=== PATIENT | female | born 1960 | race Caucasian/White ===

== ENCOUNTER → 2018-12-20 | Outpatient (CLI) | payer BC ==
--- NOTE | 2018-12-22 09:07 | MM ---
Reason for exam: screening (asymptomatic). Physical Findings: A clinical breast exam by your physician is recommended on an annual basis and results should be correlated with mammographic findings. MG 3D Screening Mammo W/Cad Bilateral CC and MLO view(s) were taken. No prior studies available for comparison. The breast tissue is heterogeneously dense. This may lower the sensitivity of mammography. There is a 3mm group of calcifications in the right upper outer quadrant at middle depth near the 9:30 position. No suspicious abnormality in the left breast. ASSESSMENT: Incomplete: need additional imaging evaluation, BI-RAD 0 RECOMMENDATION: Special view mammogram of the right breast. [facility] will attempt to contact patient to return for supplemental views.
== END | disposition home or self-care (01) ==
LOC: RADMAMWWP 13:15
PROVIDERS: ATTEND Family Medicine
DX: Z12.31 Encounter for screening mammogram for malignant neoplasm of breast (principal)
CPT/HCPCS: 77063; 77067

== ENCOUNTER → 2019-01-12 | Outpatient (CLI) | payer BC ==
--- NOTE | 2019-01-15 08:09 | MM ---
Reason for exam: additional evaluation requested from abnormal screening. Last mammogram was performed 1 month ago. Physical Findings: Nurse did not find any significant physical abnormalities on exam. MG 3D Work Up W/Cad RT CC with magnification, LM with magnification, and LM view(s) were taken of the right breast. Prior study comparison: December 20, 2018, bilateral MG 3d screening mammo w/cad. The breast tissue is heterogeneously dense. This may lower the sensitivity of mammography. Finding: There are calcifications in the outer quadrant, central position of the right breast. These results were verbally communicated with the patient and result sheet given to the patient on 01/12/19. ASSESSMENT: Suspicious, BI-RAD 4 RECOMMENDATION: Stereotactic core biopsy of the right breast. Called with mammographic findings and has scheduled an appointment for the patient for 02/08/19 at 4:[address] Yip. Biopsy scheduled for 02/09/19 at 8:00. PRELIMINARY REPORT CALLED AND FAXED TO DR. YIP ON 01/15/19.
== END | disposition home or self-care (01) ==
LOC: RADMAMWWP 14:31
PROVIDERS: ATTEND Family Medicine
DX: R92.8 Other abnormal and inconclusive findings on diagnostic imaging of breast (principal)
CPT/HCPCS: 77061; 77065

== ENCOUNTER → 2019-02-08 | Outpatient (CLI) | payer BC ==
[2019-02-08 16:50] VITALS: BP 126/78; PULSE 86; RESP 20; TEMP 98; BMI 41.1
--- NOTE | 2019-02-08 16:52 | P.GSHP ---
History of Present Illness H&P Date: 02/08/19 Chief Complaint: abnormal mammogram of the right breast Aminah is a 58-year-old white female who on a routine mammogram was noted to have an area of microcalcification in her right breast. A bilateral mammogram was in December 20 which revealed a 3 mm group of calcifications the right upper outer quadrant and this was followed on 3818 by diagnostic mammogram of the right breast. The area was felt to be suspicious and stereotactic core biopsy of the right breast was recommended. She states she did not feel anything of concern in her breasts. No nipple discharge or skin changes. She does not feel any lumps or masses in her breast. She does not have any pain in her breasts. Her last mammogram was approximately 10 years ago. Family history: 1. Brother: Non-Hodgkin's lymphoma 2. mother: pancreatic cancer 3. father: Esophageal cancer 4. sister: Thyroid cancer 5. Paternal grandmother: Lung cancer Hormonal history: Menarche:17 Pregnancies: 3, 3 children, first born at 21, breast fed: None Menopause: Has not had a period for 3 months BCP: none hormones: none Past surgical history: 1. 3 C-sections 2. Cervical neck fusion 3. hernia surgery times three 4. gallbladder 5. lithotripsy Current medical history: 1. Kidney stones 2. Cervical neck disease 3. Hypothyroid Social History: smoke: none alcohol: monthly drugs: none - Constitutional Comment: hot flashes Constitutional: Reports sweats - EENT Eyes: denies blurred vision, denies pain Ears: deny: decreased hearing, tinnitus Ears, nose, mouth and throat: Denies headache, Denies sore throat - Breasts Breasts: bilateral: as per HPI - Cardiovascular Cardiovascular: Reports high blood pressure - Respiratory Respiratory: Denies cough, Denies 7 - Gastrointestinal Gastrointestinal: Denies abdominal pain, Denies diarrhea, Denies nausea, Denies vomiting - Genitourinary (Female) Genitourinary: Reports kidney stones - Menstruation Comment: perimenopausal - Musculoskeletal Musculoskeletal: Reports neck pain - Integumentary Integumentary: Denies pruritus, Denies rash - Neurological Neurological: Reports weakness - Psychiatric Psychiatric: Denies anxiety, Denies depression - Endocrine Comment: hypothyroid Endocrine: Reports weight change, Denies fatigue - Hematologic/Lymphatic Comment: none - Allergic/Immunologic Allergic/Immunologic: Reports as per HPI Medications and Allergies Home Medications Medication Instructions Recorded Confirmed Type Levothyroxine Sodium [Synthroid] 200 mcg PO DAILY 02/05/19 02/05/19 History Allergies Allergy/AdvReac Type Severity Reaction Status Date / Time No Known Allergies Allergy Verified 02/05/19 12:50 Surgical - Exam BMI 41.1 - General well developed, well nourished, no distress - Eyes normal ocular movement - ENT no hearing loss, no congestion - Neck no masses, trachea midline - Respiratory normal respiratory effort, clear to auscultation - Cardiovascular Rhythm: regular Heart Sounds: normal: S1, S2 - Abdomen Abdomen: soft, non tender, no guarding, no rigid, no rebound - Integumentary normal turgor - Neurologic no disoriented, no combative - Musculoskeletal normal gait, normal posture - Psychiatric oriented to time, oriented to person, oriented to place, speech is normal, memory intact Breast examination: Right breast: Multi-positional exam no dominant masses or nodules of concern, fibrocystic changes Right axilla: No adenopathy of concern Left breast: Multi-positional exam no dominant masses or nodules of concern, fibrocystic changes Left axilla: No adenopathy of concern Results Mammogram results reviewed Assessment and Plan Assessment: Impression: 1. Mammographic abnormality right breast 2. Fibrocystic breast changes 3. Family history of cancer 4. Cervical disc disease 5. History of kidney stones Plan: 1. Stereotactic core biopsy right breast 2. Medical management of medical conditions Risks and benefits of stereotactic procedure discussed with the patient. She wishes to proceed in this is scheduled for tomorrow. Cc: Sonia Perry
== END ==
LOC: WWCWWP 15:38
PROVIDERS: ATTEND Surgery
DX: Z53.9 Procedure and treatment not carried out, unspecified reason (principal)

== ENCOUNTER → 2019-02-09 | Day surgery (SDC) | payer BC ==
[2019-02-09 07:20] VITALS: RESP 16; BMI 42.0
--- NOTE | 2019-02-09 09:24 | P.OP ---
Date of Procedure: 02/09/19 Preoperative Diagnosis: Mammographic abnormality/microcalcifications right breast outer quadrant Postoperative Diagnosis: same Procedure(s) Performed: Right breast stereotactic core biopsy Anesthesia: local Surgeon: Milly Yip Estimated Blood Loss (ml): 2 Pathology: other Condition: stable Disposition: same day Indications for Procedure: Microcalcifications of concern right breast outer quadrant Operative Findings: Microcalcifications Description of Procedure: The patient is a 58-year-old white female who presented with a mammographic abnormality in her right breast. This was in the outer quadrant. The patient was recommended to undergo a stereotactic core biopsy. Risks and benefits of the procedure were discussed with the patient and she wished to have the procedure performed. Patient was taken to the stereotactic core room. She was positioned on the lo- rad table. A sweatband flanger film was attained in the cc from both position revealing the area of concern. Stereo pair was obtained. The lesion of concern was targeted. The skin was prepped using Betadine. 1% lidocaine was used to anesthetize the area of concern. A 9-gauge vacuum-assisted rotating core biopsy needle was driven to the correct coordinates. Pre-and post-fire radiographs were obtained revealing the correct location of the needle. 5 specimens were obtained from the 12 o'clock position. Radiograph of the specimen revealed the area of concern had been sampled as per calcifications in the specimen. A secure radha clip was left in place. Patient tolerated the procedure in stable condition. Specimen was sent for pathology. The patient will follow with Dr. Clemente in 1 week.
[2019-02-09 09:25] VITALS: BP 147/84; PULSE 78; TEMP 97.6
--- NOTE | 2019-02-12 09:00 | MM ---
EXAMINATION TYPE: MG stereo VAD BX RT DATE OF EXAM: 02/09/2019 COMPARISON: Mammogram 01/12/2018 CLINICAL HISTORY: Abnormal mammogram TECHNIQUE: Stereotactic guided core biopsy of right breast. FINDINGS I performed the localization, then surgeon, Dr. Clemente performed the remainder of the procedure. A vacuum assisted biopsy gun was used to obtain multiple core samples. The patient tolerated the procedure well without any immediate complication. The patient was kept in the radiology department for short stay after the procedure and then discharged home in stable condition. Targeted calcifications are identified in specimen mammogram. Post biopsy mammogram shows the clip to appear in satisfactory position relative to the targeted area of concern on the preprocedure images. IMPRESSION: SUCCESSFUL, UNCOMPLICATED STEREOTACTIC GUIDED CORE BIOPSY OF AREA OF CONCERN, ABNORMAL CALCIFICATIONS IN THE right BREAST, FULL PATHOLOGY RESULTS TO FOLLOW. Pathology Results: Benign RIGHT BREAST, STEREOTACTIC CORE BIOPSY: Flat epithelial atypia (FEA/ADH) with associated calcifications. Background fibrocystic changes including cysts, fibrosis, columnar cell hyperplasia, and adenosis. Recommendation Follow up mammogram of the right breast in 6 months. JEY
== END ==
LOC: RADMAMWWP 07:01
PROVIDERS: ATTEND Surgery
DX: N60.11 Diffuse cystic mastopathy of right breast (principal); N60.01 Solitary cyst of right breast; R92.8 Other abnormal and inconclusive findings on diagnostic imaging of breast
CPT/HCPCS: 88305; 19081; A4648; J2001

== ENCOUNTER → 2019-02-23 | Outpatient (CLI) | payer BC ==
[2019-02-23 13:36] VITALS: BP 126/86; PULSE 87; RESP 16; TEMP 97.7; BMI 42.0
--- NOTE | 2019-02-23 13:48 | P.PN ---
Progress Note - Text Progress Note Date: 02/23/19 Aminah is a 58-year-old white female who is status post right breast area tactic core biopsy on 451. Pathology revealed flat epithelial atypia. The patient has no complaints related to the biopsy. Physical exam: Area of the incision is clean and dry with no evidence of any infection Impression: 1. Flat epithelial atypia noted on Cerner tactic core biopsy of the right breast Plan: 1. Needle local excisional biopsy of area of atypia in the right breast Risk and benefits of the procedure were discussed with the patient. She understands and wishes to proceed. This will be scheduled in the near future. Cc: Sonia Perry
== END | disposition home or self-care (01) ==
LOC: WWCWWP 13:16
PROVIDERS: ATTEND Surgery
DX: Z53.9 Procedure and treatment not carried out, unspecified reason (principal)

== ENCOUNTER → 2019-03-29 | Outpatient (CLI) | payer BC ==
[2019-03-29 15:47] VITALS: BP 125/68; PULSE 69; RESP 18; TEMP 98; BMI 40.7
--- NOTE | 2019-03-29 16:30 | P.GSHP ---
History of Present Illness H&P Date: 03/29/19 Chief Complaint: sterotactic core biopsy with atypia Aminah is a 58-year-old white female who is status post right breast stereotactic core biopsy and 4519. Pathology revealed flat epithelial atypia. Mammogram was being done as routine screening. She had not had a mammogram for 10 years. Family history: 1. : Non-Hodgkin's lymphoma diet 2. Mother: Pancreatic cancer 2. Father: Esophageal cancer 4. Sr.: Thyroid cancer 5. Paternal grandmother: Lung cancer Hormonal history: : Menarche: 17 Pregnancies: 3, 3 children, first point and 21, press-fit: No Menopause: Has not had a period for 5 months This control pills: Negative Hormones: Negative Past surgical history: 1. 3 C-sections 2. Cervical neck fusion 3. Hernia surgery 3 4. Cholecystectomy 5. Lithotripsy Medical history: 1. Kidney stones 2. Cervical neck disease 2. Hypothyroid Social history: Smoke: Negative Alcohol: None. Drugs: Negative - Constitutional Constitutional: Reports sweats - EENT Eyes: denies blurred vision, denies pain Ears, nose, mouth and throat: Denies headache, Denies sore throat - Breasts Breasts: bilateral: as per HPI - Cardiovascular Cardiovascular: Reports high blood pressure - Respiratory Respiratory: Denies cough, Denies 7 - Genitourinary (Female) Genitourinary: Reports kidney stones, Denies dysuria, Denies hematuria - Menstruation Menstruation: Reports postmenopausal - Musculoskeletal Comment: The patient's neck. - Integumentary Integumentary: Denies pruritus, Denies rash - Neurological Neurological: Denies numbness, Denies weakness - Psychiatric Psychiatric: Denies anxiety, Denies depression - Endocrine Comment: Hypothyroid - Hematologic/Lymphatic Comment: none - Allergic/Immunologic Allergic/Immunologic: Reports as per HPI Past Medical History Past Medical History: Hypertension, Thyroid Disorder History of Any Multi-Drug Resistant Organisms: None Reported Past Surgical History: Section Smoking Status: Former smoker Past Alcohol Use History: Occasional Past Drug Use History: None Reported Medications and Allergies Home Medications Medication Instructions Recorded Confirmed Type Levothyroxine Sodium [Synthroid] 200 mcg PO DAILY 02/05/19 03/29/19 History Losartan/Hydrochlorothiazide 1 each PO DAILY 02/09/19 03/29/19 History [Losartan-Hctz 100-25 mg Tab] Ibuprofen 200 mg PO PRN 02/23/19 History Allergies Allergy/AdvReac Type Severity Reaction Status Date / Time No Known Allergies Allergy Verified 03/29/19 15:47 Surgical - Exam Vital Signs Temp Pulse Resp BP Pulse Ox 98.0 F 69 18 125/68 96 03/29/19 15:40 03/29/19 15:40 03/29/19 15:40 03/29/19 15:40 03/29/19 15:40 - General obese - Eyes normal ocular movement - ENT no hearing loss, no congestion - Neck no masses, trachea midline - Respiratory normal respiratory effort, clear to auscultation - Cardiovascular Rhythm: regular Heart Sounds: normal: S1, S2 - Abdomen Abdomen: soft, non tender, no guarding, no rigid, no rebound - Integumentary normal turgor - Musculoskeletal normal gait, normal posture - Psychiatric oriented to time, oriented to person, oriented to place, speech is normal, memory intact breast exam : Right breast: Multiple positional exam no dominant masses or nodules of concern, fibrocystic changes, no evidence of any infection Biopsy site right Axilla: No adenopathy of concern left breast: Multiple positional exam no dominant masses or nodules of concern, fibrocystic changes Left axilla: No adenopathy of concern BRA 40C Results Mammogram results reviewed Assessment and Plan Assessment: Impression: 1. Epithelial atypia on right breast stereotactic core biopsy 2. Fibrocystic breast changes 3. Family history of cancer 4. Cervical disc disease 5. History of kidney stones Plan: 1. Needle local excisional biopsy of epithelial atypia in right breast 2. Medical management of medical conditions CC: Sonia Perry
== END ==
LOC: WWCWWP 15:25
PROVIDERS: ATTEND Surgery
DX: Z53.9 Procedure and treatment not carried out, unspecified reason (principal)

== ENCOUNTER 2019-04-10 07:31 | Day surgery (SDC) | payer BC ==
[2019-04-05 18:21] VITALS: BMI 40.7
[~2019-04-10 07:31] MED LIST: DEXAMETHASONE SOD PHOSPHATE 10 MG/ML 1 ML VIAL IV ONE; HEPARIN SODIUM,PORCINE 5,000 UNIT/ML 1 ML VIAL SQ ONE; HYDROmorphone 0.5 MG/0.5 ML SYRINGE IVP PRN; MIDAZOLAM 2 MG/2 ML VIAL IV PRN; ONDANSETRON 4 MG/2 ML VIAL IVP ONE; Pre Op ABX Message 1 EACH MISC MISCELLANE ONE; SCOPOLAMINE 1.5MG/72HR PATCH TRANSDERM ONE
[2019-04-10 08:22] VITALS: RESP 16
[2019-04-10] MEDS ORDERED: ALPRAZolam 0.5 MG TAB PO ONE (08:23)
[2019-04-10] MEDS: LACTATED RINGERS 1,000 ML IV SCH ×2 (08:24→10:11)
[2019-04-10] MEDS ORDERED: LIDOCAINE 1% 20 ML VIAL (10MG/ML) FOR IV START INTRADERMA ONE (08:25)
[2019-04-10] MEDS ORDERED: LIDOCAINE 1% INJ 10MG/ML (20 ML MDV) SQ ONE ×5 (09:09→10:48)
[2019-04-10] MEDS ORDERED: HEPARIN SODIUM,PORCINE 5,000 UNIT/ML 1 ML VIAL SQ ONE (09:49)
[2019-04-10] MEDS ORDERED: PROPOFOL 10 MG/ML 20 ML VIAL IV ONE (10:11)
[2019-04-10] MEDS ORDERED: fentaNYL (PF) 50 MCG/ML 2 ML AMP ONE (10:11)
[2019-04-10] MEDS ORDERED: HYDROmorphone (PF) 1 MG/ML ONE (10:11)
[2019-04-10] MEDS ORDERED: MIDAZOLAM 2 MG/2 ML VIAL ONE (10:11)
[2019-04-10] MEDS ORDERED: SUCCINYLCHOLINE CHLORIDE 100 MG/5 ML SYR IV ONE (10:11)
[2019-04-10] MEDS ORDERED: LIDOCAINE 1% INJ 10MG/ML (20 ML MDV) ONE (10:11)
[2019-04-10] MEDS ORDERED: ePHEDrine SULFATE/0.9% NACL/PF 50 MG/5 ML SYRINGE IV ONE (10:11)
[2019-04-10] MEDS ORDERED: LACTATED RINGERS 1,000 ML IV ONE (11:24)
--- NOTE | 2019-04-10 11:43 | P.OP ---
Date of Procedure: 04/10/19 Preoperative Diagnosis: Epithelial atypia right breast on core biopsy Postoperative Diagnosis: Same Procedure(s) Performed: Right breast needle localization excisional biopsy the second mastopexy incision, with oncoplastic tissue rearrangement Anesthesia: UVALDO Surgeon: Milly Yip Estimated Blood Loss (ml): 10 IV fluids (ml): 600 Pathology: other (breast tissue) Condition: stable Disposition: same day Indications for Procedure: core Biopsy with epithelial Atypia Operative Findings: dense breast tissue Description of Procedure: The patient is a 58-year-old white female who is status post right stereotactic core biopsy. Pathology revealed epithelial atypia and patient is scheduled for needle localization and excisional biopsy of the area of concern. After discussion with the patient, this will be done via a crescent mastopexy incision. The patient was taken to the radiology suite in the area of concern was localized. The patient was then brought to the operating room and following induction of general anesthesia the right breast was prepped and draped in a sterile fashion. An incision in the superior periareolar region was made with a second incision approximately 1 cm superior to this in a crescent fashion. The skin between these was de-epithelialized. An incision was made to enter the area of the breast parenchyma near the superior incision. Dissection was ca rried down to the needle. The needle and the tissue around the needle was grasped using an Allis. The superior and inferior breast was freed from the anterior subcutaneous tissue using the electrocautery device. The area of concern was excised. The specimen was painted. Radiograph of the specimen revealed the area of concern about removed. Titanium clips were placed. The superior and inferior patella as well as then freed and an optical plastic fashion. There was freed from the skin in the subcutaneous plane as well as over the pectoralis muscle. Both could be then mobilized into the defect. They were mobilized into the defect and secured using 3-0 Vicryl suture. Approximately 20 mL of tissue was mobilized. This was done after we were assured hemostasis was attained. Following this the subcutaneous tenia tissues were closed using 3-0 Vicryl suture. This was felt by closure of the skin with a subcuticular suture. Steri-Strips were applied. The patient tolerated the procedure in a stable condition. The specimen was sent to pathology.
--- NOTE | 2019-04-10 11:46 | P.DS ---
Providers Attending physician: Milly Yip Primary care physician: Janeth Tracy Plan - Discharge Summary Discharge Rx Participant: Yes New Discharge Prescriptions: No Action Levothyroxine Sodium [Synthroid] 200 mcg PO DAILY Losartan/Hydrochlorothiazide [Losartan-Hctz 100-25 mg Tab] 1 each PO DAILY Ibuprofen 400 mg PO Q6H PRN PRN Reason: Pain Discharge Medication List Levothyroxine Sodium [Synthroid] 200 mcg PO DAILY 02/05/19 [History] Losartan/Hydrochlorothiazide [Losartan-Hctz 100-25 mg Tab] 1 each PO DAILY 02/09/19 [History] Ibuprofen 400 mg PO Q6H PRN 02/23/19 [History] Follow up Appointment(s)/Referral(s): Milly Yip MD [STAFF PHYSICIAN] - 1 Week Activity/Diet/Wound Care/Special Instructions: Do not drive today Patient may shower after 48 hours wear bra at all times unless showering Discharge Disposition: HOME SELF-CARE
[2019-04-10 11:55] VITALS: TEMP 96.8
[2019-04-10] MEDS ORDERED: HYDROcodone/APAP 5-325MG 1 EACH TAB PO ONE (12:29)
[2019-04-10 12:53] VITALS: BP 124/82; PULSE 82
--- NOTE | 2019-04-12 16:51 | MM ---
EXAMINATION TYPE: MG surgical specimen RT, MG pre op needle loc RT DATE OF EXAM: 04/10/2019 HISTORY: Abnormal mammogram PROCEDURE: Maximal barrier technique is utilized. The skin overlying a suitable path to the patient's indwellin g clear in the upper outer right breast was localized using mammographic guidance. The skin was pre pped and Lidocaine used for local anesthesia. A 20-gauge needle was advanced to the level of the mas s using mammographic guidance and a wire deployed. Needle was removed and hemostasis achieved. The patient remained in stable condition. Image obtained verified placement of the wire. Postprocedural specimen radiograph shows the clip and wire to be present in the specimen. IMPRESSION: Successful mammographic guided wire localization of this patient's breast clip. This pr ocedure performed by the undersigned.
== END 2019-04-10 13:34 | disposition home or self-care (01) ==
LOC: OR 07:31
PROVIDERS: ATTEND Surgery
DX: N60.89 Other benign mammary dysplasias of unspecified breast (principal); Z90.49 Acquired absence of other specified parts of digestive tract; E03.9 Hypothyroidism, unspecified; I10 Essential (primary) hypertension; Z87.891 Personal history of nicotine dependence; Z87.442 Personal history of urinary calculi; Z79.890 Hormone replacement therapy; Z79.899 Other long term (current) drug therapy; Z80.1 Family history of malignant neoplasm of trachea, bronchus and lung; Z80.0 Family history of malignant neoplasm of digestive organs; Z80.8 Family history of malignant neoplasm of other organs or systems
CPT/HCPCS: 81025; 84132; 76098; 19281; 19125; 19316; J2250; J1644; J1100; J2405; J2001; J3010; J1170; J0330; J2704; 88305; 88307

== ENCOUNTER → 2019-04-19 | Outpatient (CLI) | payer BC ==
[2019-04-19 13:04] VITALS: BP 107/74; PULSE 76; RESP 16; TEMP 98.2; BMI 41.6
--- NOTE | 2019-04-19 13:22 | P.PN ---
Progress Note - Text Progress Note Date: 04/19/19 Aminah is a 58-year-old white female status post right breast needle localization and excisional biopsy for core biopsy which revealed flat epithelial atypia. Pathology revealed flat epithelial atypia, margins were negative, no malignancy was identified. The patient has no complaints postproce dure. The patient does state that she has some itching at the site of the incision. Physical exam: Lungs: Clear Heart: Regular rate and rhythm Incision site was clean and dry there is some erythema of the breast which the patient states has improved and may be related to the tape, no evidence of infection at this time Impression: 1. Flat epithelial atypia of the right breast 2. No evidence of malignancy 3. No evidence of infection Plan: 1. Follow-up in 2 weeks to assure that the erythema continues to resolve 2. Repeat right breast mammogram in 6 months with physician exam at that time CC:Dr. Janeth Tracy [place]
== END | disposition home or self-care (01) ==
LOC: WWCWWP 12:43
PROVIDERS: ATTEND Surgery
DX: Z53.9 Procedure and treatment not carried out, unspecified reason (principal)

== ENCOUNTER 2019-04-28 08:58 | Emergency (ER) | payer BC ==
[2019-04-28 09:55] VITALS: TEMP 98.8
--- NOTE | 2019-04-28 11:03 | ED ---
General Adult HPI - General Source: patient Mode of arrival: ambulatory Limitations: no limitations <Chapito Gregory - Last Filed: 04/28/19 10:46> <Anthony Acevedo - Last Filed: 04/28/19 16:19> - General Chief complaint: Skin/Abscess/Foreign Body Stated complaint: post op infection Time Seen by Provider: 04/28/19 10:34 - History of Present Illness Initial comments: Patient is a 58-year-old female presenting to emergency Department with tenderness and inflammation in the right breast. Patient had a breast biopsy on April [address] Yip for possible precancerous nodules. Patient has not had any issues until yesterday she developed erythema and tenderness on the upper inner and outer breast quadrants. Patient reports the pain is 2-3 when the breast tissue is not agitated and exacerbated with palpation. Patient reports feeling hot but has not measured her temperature since yesterday. Patient denies taking medication to alleviate the pain. Patient reports nausea but no vomiting. Patient denies chest pain, chest tightness, shortness of breath. Patient does report a mild headache yesterday but states that is her baseline due to a cervical fusion. Patient denies discharge from her breast. (Chapito Gregory) - Related Data Home Medications Medication Instructions Recorded Confirmed Levothyroxine Sodium [Synthroid] 200 mcg PO DAILY 02/05/19 04/28/19 Losartan/Hydrochlorothiazide 1 tab PO DAILY 02/09/19 04/28/19 [Losartan-Hctz 100-25 mg Tab] Ibuprofen 400 mg PO Q6H PRN 02/23/19 04/28/19 Previous Rx's Medication Instructions Recorded Cephalexin [Keflex] 500 mg PO Q6HR #40 cap 04/28/19 Allergies Allergy/AdvReac Type Severity Reaction Status Date / Time No Known Allergies Allergy Verified 04/28/19 10:58 Review of Systems ROS Other: All systems not noted in ROS Statement are negative. <Chapito Gregory - Last Filed: 04/28/19 10:46> ROS Other: All systems not noted in ROS Statement are negative. <Anthony Acevedo - Last Filed: 04/28/19 16:19> ROS Statement: Those systems with pertinent positive or pertinent negative responses have been documented in the HPI. Past Medical History Past Medical History: Hypertension, Thyroid Disorder Additional Past Medical History / Comment(s): HX KIDNEY STONES. RT BREAST MASS CURRENTLY. History of Any Multi-Drug Resistant Organisms: None Reported Past Surgical History: Section, Cholecystectomy, Hernia Repair Additional Past Surgical History / Comment(s): kidney stone lithotripsy 2018, Cervical neck fusion 2017. HERNIA, ISAI INGUINAL AND UMB. Past Anesthesia/Blood Transfusion Reactions: No Reported Reaction Past Psychological History: No Psychological Hx Reported Smoking Status: Never smoker Past Alcohol Use History: Occasional Past Drug Use History: Marijuana - Past Family History Father Brother(s) Family Medical History: Cancer Mother Family Medical History: Cancer <Chapito Gregory - Last Filed: 04/28/19 10:46> General Exam Limitations: no limitations General appearance: alert, in no apparent distress Head exam: Present: atraumatic, normocephalic, normal inspection Eye exam: Present: normal appearance, PERRL, EOMI Pupils: Present: normal accommodation ENT exam: Present: normal exam Neck exam: Present: normal inspection Respiratory exam: Present: normal lung sounds bilaterally, other (3 cm x 5 cm erythema and tenderness to the touch on right breast. 2 cm x 3 cm induration. No discharge.) Cardiovascular Exam: Present: regular rate, normal rhythm, normal heart sounds GI/Abdominal exam: Present: soft Extremities exam: Present: normal inspection, full ROM Back exam: Present: normal inspection, full ROM Neurological exam: Present: alert, oriented X3 Psychiatric exam: Present: normal affect, normal mood Skin exam: Present: warm, intact, normal color <Chapito Gregory - Last Filed: 04/28/19 10:46> Course <Anthony Acevedo - Last Filed: 04/28/19 16:19> Vital Signs 04/28/19 04/28/19 09:52 13:55 Temperature 98.8 F Pulse Rate 92 74 Respiratory 16 18 Rate Blood Pressure 136/73 132/79 O2 Sat by Pulse 98 97 Oximetry - Reevaluation(s) Reevaluation #1: 04/28/19 15:47 Case was earlier discussed with Dr. Yip who did recommend needle aspiration. Case was again discussed with Dr. Yip following needle aspiration who is comfortable with discharge home and recommends Keflex and follow up with patient on Tuesday. (Anthony Acevedo) Procedures <Anthony Acevedo - Last Filed: 04/28/19 16:19> - Procedures Initial comment: Right breast was cleansed using Betadine solution. Area was anesthetized with 2 mL of 1% plain lidocaine. Needle aspiration was performed without complication. A proximally 40 mL of fluid was obtained. First 10-15 mL was yellow/brownish in color. There is no odor. Following this approximately 20-25 mL removed of dark blood. (Anthony Acevedo) Medical Decision Making - Lab Data Result diagrams: 04/28/19 12:10 04/28/19 12:10 <Anthony Acevedo - Last Filed: 04/28/19 16:19> - Lab Data Lab Results 04/28/19 04/28/19 Range/Units 12:10 12:10 WBC 11.5 H (3.8-10.6) k/uL RBC 4.16 (3.80-5.40) m/uL Hgb 12.5 (11.4-16.0) gm/dL Hct 37.6 (34.0-46.0) % MCV 90.3 (80.0-100.0) fL MCH 30.2 (25.0-35.0) pg MCHC 33.4 (31.0-37.0) g/dL RDW 13.3 (11.5-15.5) % Plt Count 285 (150-450) k/uL Sodium 139 (137-145) mmol/L Potassium 3.7 (3.5-5.1) mmol/L Chloride 103 (98-107) mmol/L Carbon Dioxide 26 (22-30) mmol/L Anion Gap 10 mmol/L BUN 9 (7-17) mg/dL Creatinine 0.63 (0.52-1.04) mg/dL Est GFR (CKD-EPI)AfAm >90 (>60 ml/min/1.73 sqM) Est GFR (CKD-EPI)NonAf >90 (>60 ml/min/1.73 sqM) Glucose 94 (74-99) mg/dL Calcium 9.5 (8.4-10.2) mg/dL Total Bilirubin 0.8 (0.2-1.3) mg/dL AST 33 (14-36) U/L ALT 31 (9-52) U/L Alkaline Phosphatase 97 (38-126) U/L Total Protein 7.1 (6.3-8.2) g/dL Albumin 4.1 (3.5-5.0) g/dL Disposition <Chapito Gregory - Last Filed: 04/28/19 10:46> Is patient prescribed a controlled substance at d/c from ED?: No Time of Disposition: 15:50 <Anthony Acevedo - Last Filed: 04/28/19 16:19> Clinical Impression: Mastitis, Breast hematoma Disposition: HOME SELF-CARE Condition: Stable Instructions (If sedation given, give patient instructions): Mastitis (ED), Abscess (ED), Hematoma (ED) Additional Instructions: Please follow-up with Dr. Yip Tuesday at 8 AM. Please return for fevers, increased swelling, increased redness, increased pain, worsening symptoms or any other concerns. Prescriptions: Cephalexin [Keflex] 500 mg PO Q6HR #40 cap Referrals: Janeth Tracy DO [Primary Care Provider] - 1-2 days Milly Yip MD [STAFF PHYSICIAN] - 1-2 days
--- NOTE | 2019-04-28 11:34 | USB ---
EXAMINATION TYPE: US breast complete RT DATE OF EXAM: 04/28/2019 COMPARISON: NONE CLINICAL HISTORY: Pain. The patient is 18 days post needle localization. There is an 8.7 x 3.2 x 6.1 cm complex fluid collection on the right in the 8 to 9:00 position. This may represent an organizing hematoma. Underlying abscess would not BE excluded. IMPRESSION: IRREGULAR, COMPLEX FLUID COLLECTION DESCRIBED IN THE 9:00 POSITION MAY REPRESENT AN ORGANIZING HEM ATOMA. INFECTION IS NOT EXCLUDED.
[2019-04-28 12:29] LABS: HCT 37.6 % (34.0-46.0); HGB 12.5 gm/dL (11.4-16.0); MCH 30.2 pg (25.0-35.0); MCHC 33.4 g/dL (31.0-37.0); MCV 90.3 fL (80.0-100.0); Mean Platelet Volume 6.5; Platelet Count 285 k/uL (150-450); RBC 4.16 m/uL (3.80-5.40); RDW 13.3 % (11.5-15.5); WBC 11.5 k/uL (3.8-10.6)
[2019-04-28 12:44] LABS: ALT 31 U/L (9-52); AST 33 U/L (14-36); African American GFR (CKD) >90 (>60 ml/min/1.73 sqM); Albumin 4.1 g/dL (3.5-5.0); Alkaline Phosphatase 97 U/L (38-126); Anion Gap 10 mmol/L; Blood Urea Nitrogen 9 mg/dL (7-17); Calcium 9.5 mg/dL (8.4-10.2); Carbon Dioxide 26 mmol/L (22-30); Chloride 103 mmol/L (98-107); Glucose 94 mg/dL (74-99); Potassium 3.7 mmol/L (3.5-5.1); Sodium 139 mmol/L (137-145); Total Bilirubin 0.8 mg/dL (0.2-1.3); Total Protein 7.1 g/dL (6.3-8.2)
[2019-04-28 13:57] VITALS: RESP 18
[2019-04-28] MEDS ORDERED: LIDOCAINE 1% INJ 10MG/ML (20 ML MDV) SQ ONE (14:50)
[2019-04-28] MEDS ORDERED: CEPHALEXIN 500MG STARTER PACK 4 CAP BTL PO STA (15:43)
[2019-04-28 16:25] LABS: Appearance,BF Cloudy; Color,BF Orange; Nucleated Cells, Body Fluid 2700 /uL; RBC, Body Fluid 2850 /uL
[2019-04-28 16:31] VITALS: BP 130/74; PULSE 75
[2019-04-28 17:04] LABS: Mononuclear WBC,Body Fluid 13 %; Polynuclear WBC,Body Fluid 85 %; Total Cells Counted,Body Fluid 100
== END 2019-04-28 16:29 | disposition home or self-care (01) ==
LOC: EC 08:58
DX: N61.0 Mastitis without abscess (principal); N64.89 Other specified disorders of breast; R11.0 Nausea; I10 Essential (primary) hypertension; E07.9 Disorder of thyroid, unspecified; Z98.890 Other specified postprocedural states; Z79.890 Hormone replacement therapy; Z79.899 Other long term (current) drug therapy
CPT/HCPCS: 36415; 80053; 89050; 85027; 87040; 87070; 87205; 76641; 99284; 10160; J2001; 87077; 87186

== ENCOUNTER → 2019-05-03 | Outpatient (CLI) | payer BC ==
[2019-05-03 12:45] VITALS: BP 120/73; PULSE 80; RESP 16; TEMP 98.3; BMI 40.7
--- NOTE | 2019-05-03 13:53 | P.PN ---
Subjective Progress Note Date: 05/03/19 Aminah is a 58-year-old white female status post right breast needle local excisional biopsy for core biopsy which revealed flat epithelial atypia. Her pathology revealed that we had epithelial atypia, and margins were negative, and no malignancy was identified. She was seen 04/19/2019 postprocedure and had no complaints at that time. However, on her first postoperative visit there was noticed to be some erythema of the breast which was felt to be related to the tape. The patient developed increasing erythema and was seen in the emergency room on 04-28-19. At that time she had increased swelling of the breast and an aspiration was performed and cultures were obtained. Cultures revealed staph. lugdunenisis, and gram-negative and gram-positive bacilli. She had been started on Keflex and was subsequently started on Flagyl as well. The patient at this time states she is doing well. She has no fever or chills. She states that the breast does feel hard. She states that it feels tender to palpation. Physical exam: Lungs: Clear Heart: Regular rate and rhythm Right breast: Incision is clean and dry there is erythema superior to the incision in the lateral aspect of the breast on palpation therefore paced to be fluid in the area of the biopsy cavity Impression: 1. Cellulitis/abscess right breast status post right breast biopsy 2. No fever or signs of sepsis Plan: 1. Aspiration of the area of fullness 2. Continue antibiotic therapy 3. Consider ID consultation Cc: Objective - Vital Signs Vital signs: Vital Signs Temp 98.3 F 05/03/19 12:38 Pulse 80 05/03/19 12:38 Resp 16 05/03/19 12:38 BP 120/73 05/03/19 12:38 Pulse Ox 98 05/03/19 12:38 Intake & Output 05/02/19 05/03/19 05/03/19 18:59 06:59 18:59 Weight 104.326 kg
--- NOTE | 2019-05-03 14:02 | P.PCN ---
Date of Procedure: 05/03/19 Preoperative Diagnosis: Abscess/seroma right breast post biopsy Postoperative Diagnosis: seroma right breast Procedure(s) Performed: Aspiration seroma Anesthesia: local Surgeon: Milly Yip Estimated Blood Loss (ml): 0 Condition: stable Disposition: same day Operative Findings: seroma fluid Description of Procedure: The area of fullness in the right breast was prepped using Betadine. Approximately 3 mL of 1% lidocaine was injected in the subcutaneous tissue and towards the area of the seroma cavity. Following this an 18-gauge needle on a 60 mL syringe was inserted into the seroma cavity. 20 mL of yellow straw- colored fluid was obtained. There was no evidence of any purulence. The tissue on the breast appeared to be cellulitic however. There was erythematous. The area was approximately 11 cm x 8 cm. The fluid was sent for microbiology and cultures. The patient is going to continue on Keflex and Flagyl. She does not wish to be admitted for IV antibiotics at this time. She will be reevaluated tomorrow. After the aspiration the area of erythema didn't seem to decrease.
== END | disposition home or self-care (01) ==
LOC: WWCWWP 12:33
PROVIDERS: ATTEND Surgery
DX: N64.89 Other specified disorders of breast (principal)
CPT/HCPCS: 88173; 88305

== ENCOUNTER → 2019-05-04 | Outpatient (CLI) | payer BC ==
[2019-05-04 13:19] VITALS: BP 123/81; PULSE 76; RESP 16; TEMP 97.9; BMI 40.7
--- NOTE | 2019-05-04 13:26 | P.PN ---
Progress Note - Text Progress Note Date: 05/04/19 She was seen yesterday regarding erythema and fullness in the right breast status post a right breast biopsy on the 2018. She was seen post procedure in the emergency room on [id number]. At that time she had some increased swelling of the breast and aspiration had been performed. The patient was seen in the office yesterday again had swelling in the breast and aspiration was performed. Cultures were sent and are still pending. She had been started on Flagyl and has decreased inflammation of the breast at this time. The patient has no fever or chills. She does not feel ill. Physical exam: Lungs: Clear Heart: Regular rate and rhythm Right breast: Decreased erythema in both size and intensity Impression: 1. Patient status post right breast needle local excisional biopsy, developed erythema and swelling in the breast following the biopsy 2. Area of biopsy aspirated, seroma noted 3. Patient presently on Keflex and Flagyl Plan: 1. Continue Keflex and Flagyl 2. Primary with infectious disease 3. Follow-up. Next week We discussed the possibility of admission with IV antibiotics however at this time the inflammation has decreased, the patient has no evidence of sepsis, and she prefers not to be admitted. cc:
== END | disposition home or self-care (01) ==
LOC: WWCWWP 12:42
PROVIDERS: ATTEND Surgery
DX: Z53.9 Procedure and treatment not carried out, unspecified reason (principal)

== ENCOUNTER → 2020-12-12 | Outpatient (CLI) | payer BC ==
--- NOTE | 2020-12-12 14:55 | MM ---
Reason for exam: additional evaluation requested from prior study. Last mammogram was performed 1 year and 11 months ago. History: Patient is postmenopausal and has history of high-risk lesion on a previous biopsy at age 58. High risk MG pre op needle loc RT of the right breast, April 10, 2019. Benign MG stereo VAD BX RT of the right breast, February 09, 2019. Physical Findings: Nurse did not find any significant physical abnormalities on exam. MG Diagnostic Mammo w CAD ISAI Bilateral CC and MLO view(s) were taken. Prior study comparison: January 12, 2019, right breast MG 3d work up w/cad RT. December 20, 2018, bilateral MG 3d screening mammo w/cad. The breast tissue is heterogeneously dense. This may lower the sensitivity of mammography. Stable post operative changes. No new masses of suspicious calcifications. These results were verbally communicated with the patient and result sheet given to the patient on 12/12/20. ASSESSMENT: Benign, BI-RAD 2 RECOMMENDATION: Routine screening mammogram of both breasts in 1 year.
== END | disposition home or self-care (01) ==
LOC: RADMAMWWP 14:01
PROVIDERS: ATTEND Family Medicine
DX: R92.8 Other abnormal and inconclusive findings on diagnostic imaging of breast (principal)
CPT/HCPCS: 77066

== ENCOUNTER → 2021-01-23 | Outpatient (CLI) | payer BC ==
--- NOTE | 2021-01-23 14:59 | US ---
EXAMINATION TYPE: US groin LT DATE OF EXAM: 01/23/2021 COMPARISON: NONE CLINICAL HISTORY: Pelvic and perineal pain R10.2. R/O inguinal hernia. No evidence of hernia in left groin. Lymph node noted at 1.9 x 0.6 x 0.8cm Left groin region shows benign subcentimeter lymph node. No concerning solid or cystic mass or fluid collection. No obvious hernia defect on dynamic imaging. IMPRESSION: As above.
== END ==
LOC: RADUSWWP 14:13
PROVIDERS: ATTEND Family Medicine
DX: R10.2 Pelvic and perineal pain (principal)

== ENCOUNTER → 2021-04-21 | Outpatient (CLI) | payer BC ==
--- NOTE | 2021-04-21 16:06 | CT ---
EXAMINATION TYPE: CT abdomen pelvis w con DATE OF EXAM: 04/21/2021 COMPARISON: CT 02/18/2012 HISTORY: Upper Abdominal swelling with Pelvic pain for [address] DLP: 2040.4 mGycm Automated exposure control for dose reduction was used. TECHNIQUE: Helical acquisition of images from the lung bases through the pelvis have been completed. CONTRAST: Performed with Oral Contrast and with IV Contrast, patient injected with 100 mL of Isovue 300. FINDINGS: Postop changes are noted to the anterior abdominal wall. Small umbilical hernia contains fa t. LUNG BASES: No significant abnormality is appreciated. AORTA: No significant abnormality is appreciated. LIVER/GB: No significant abnormality is appreciated within the liver with a small hypodensity within the right lobe is stable, axial image #19 measuring 9 mm and not as well seen on delayed imaging, pat ient is post cholecystectomy. PANCREAS: No significant abnormality is seen. SPLEEN: No significant abnormality is seen. ADRENALS: No significant abnormality is seen. KIDNEYS: Parapelvic cysts are present in the bilateral kidneys. Nonobstructive calcifications are als o present bilaterally, largest on the left measuring approximately 1 cm, at least 2 additional calcif ications are smaller within the left kidney and there are at least 2 calcifications in the right, lar jason measuring approximately 4 mm. REPRODUCTIVE ORGANS: No significant abnormality is seen BOWEL: Some thickening of the ascending colon wall is indeterminate, could be due to lack of distent ion, cannot exclude a mucosal lesion, the appendix is unremarkable. Suspect a small duodenal divertic ulum. FREE AIR: No Free Air visible. ASCITES: None visible. PELVIC ADENOPATHY: None visualized. RETROPERITONEAL ADENOPATHY: No Retroperitoneal Adenopathy visible. URINARY BLADDER: No significant abnormality is seen. OSSEOUS STRUCTURES: No significant abnormality is seen. IMPRESSION: BILATERAL RENAL PARAPELVIC CYSTS WITH NONOBSTRUCTIVE CALCULI. POSTOP CHANGES. NONSPECIFIC FINDINGS IN THE COLON IS DESCRIBED.
== END | disposition home or self-care (01) ==
LOC: RADCTMAIN 12:18
PROVIDERS: ATTEND Family Medicine
DX: N28.1 Cyst of kidney, acquired (principal); N20.0 Calculus of kidney
CPT/HCPCS: 74177; Q9967

== ENCOUNTER 2022-07-29 16:00 | Emergency (ER) | payer BC ==
[2022-07-29 16:16] VITALS: BP 163/93; PULSE 85; RESP 16; TEMP 98.1
--- NOTE | 2022-07-29 16:40 | XR ---
EXAMINATION TYPE: XR chest 2V DATE OF EXAM: 07/29/2022 4:31 PM COMPARISON: None TECHNIQUE: XR chest 2V Frontal and lateral views of the chest. CLINICAL INDICATION:Female, 61 years old with history of difficulty breathing; FINDINGS: Lungs/Pleura: No pleural effusion or pneumothorax. Left basilar patchy airspace opacities. Elevation of the right hemidiaphragm. Pulmonary vascularity: Unremarkable. Heart/mediastinum: Cardiomediastinal silhouette is unremarkable. Musculoskeletal: Multiple level degenerative disc disease changes seen throughout the spine. Anterior cervical fixation are demonstrated. IMPRESSION: 1. Patchy left basilar airspace opacities which may represent atelectasis versus pneumonia in the ap propriate clinical setting. 2. Elevated right hemidiaphragm.
[2022-07-29 17:10] LABS: Basophils # (A) 0.1 k/uL (0-0.2); Basophils % (A) 1 %; Eosinophils # (A) 0.3 k/uL (0-0.7); Eosinophils % (A) 2 %; HGB 13.1 gm/dL (11.4-16.0); Lymphocytes # (A) 3.3 k/uL (1.0-4.8); Lymphocytes % (A) 27 %; MCH 30.1 pg (25.0-35.0); Mean Platelet Volume 7.3; Monocytes # (A) 0.6 k/uL (0-1.0); Monocytes % (A) 5 %; Neutrophils # (A) 7.7 k/uL (1.3-7.7); Neutrophils % (A) 63 %; Platelet Count 303 k/uL (150-450); RBC 4.37 m/uL (3.80-5.40); RDW 13.5 % (11.5-15.5); WBC 12.1 k/uL (3.8-10.6)
[2022-07-29 17:19] LABS: Albumin 4.4 g/dL (3.5-5.0); Calcium 9.4 mg/dL (8.4-10.2); Total Bilirubin 0.4 mg/dL (0.2-1.3); Total Protein 6.9 g/dL (6.3-8.2)
[2022-07-29 17:22] LABS: INR 0.9 (<1.2); Partial Thromboplastin Time 23.8 sec (22.0-30.0); Prothrombin Time 9.8 sec (9.0-12.0)
== END 2022-07-29 20:22 | disposition left against medical advice (07) ==
LOC: EC 16:00
DX: Z53.21 Procedure and treatment not carried out due to patient leaving prior to being seen by health care provider (principal)
CPT/HCPCS: 36415; 71046; 80053; 84484; 85025; 85610; 85730; 93005; 99499

== ENCOUNTER → 2022-10-12 | Outpatient (CLI) | payer BC ==
--- NOTE | 2022-10-12 09:27 | MR ---
EXAMINATION TYPE: MR cervical spine wo con DATE OF EXAM: 10/12/2022 INDICATION: Patient age:Female; 61 years old; Reason for study: M54.2, M79.12, M54.12, R51.9. Headaches, right arm tingling COMPARISON: None TECHNIQUE: Multi planar, multi sequence imaging was performed utilizing: T1-weighted, T2-weighted, an d turbo inversion recovery imaging of the cervical spine. IV Contrast: None. FINDINGS: Alignment: The cervical vertebral bodies have preserved heights. Alignment is within normal limits gi keegan patient positioning. Bones: Bone signal is within normal limits. Multilevel fixation changes at C5, C6 and C7. Multilevel degenerative disc disease is noted and most pronounced at the vertebral levels. Cord: The spinal cord is unremarkable with regards to their signal intensity and morphology. Discs: Multilevel disc desiccation is present. C2-C3: No significant disc pathology. The spinal canal is patent. Bilateral facet and uncovertebral joint arthropathy are present with mild left neural foraminal stenosis. The right neural foramen is p atent. C3-C4: No significant disc pathology. The spinal canal is patent. Bilateral facet and uncovertebral joint arthropathy are present with mild bilateral neural foraminal stenosis. C4-C5: No significant disc pathology. The spinal canal is patent. Bilateral facet and uncovertebral joint arthropathy are present with mild right neural foraminal stenosis. The left neural foramen is p atent. C5-C6: No significant disc pathology. The spinal canal is patent. Bilateral facet and uncovertebral joint arthropathy are present with mild right neural foraminal stenosis. The left neural foramen is p atent. C6-C7: No significant disc pathology. The spinal canal is patent. No neural foraminal stenosis. C7-T1: No significant disc pathology. The spinal canal is patent. No neural foraminal stenosis. IMPRESSION: 1. No evidence for disc herniation or significant spinal canal stenosis. 2. Multilevel disc degeneration changes with scattered mild neural foraminal stenosis.
== END | disposition home or self-care (01) ==
LOC: RADMRIMAIN 07:10
PROVIDERS: ATTEND Orthopaedic Surgery Orthopaedic Surgery of the Spine
DX: M50.122 Cervical disc disorder at C5-C6 level with radiculopathy (principal); M79.12 Myalgia of auxiliary muscles, head and neck; M99.71 Connective tissue and disc stenosis of intervertebral foramina of cervical region; R51.9 Headache, unspecified; M48.02 Spinal stenosis, cervical region
CPT/HCPCS: 72141

== ENCOUNTER → 2023-02-10 | Outpatient (CLI) | payer BC ==
--- NOTE | 2023-02-10 17:15 | BD ---
EXAMINATION TYPE: Axial Bone Density DATE OF EXAM: 02/10/2023 CLINICAL HISTORY: 62 years old Female. ICD-10 CODE: Z78.0 MENOPAUSAL STATE Height: 63.5 Weight: 230.7 FRAX RISK QUESTIONS: Alcohol (3 or more units per day): no Family History (Parent hip fracture): no Glucocorticoids (More than 3mos): no History of Fracture in Adulthood: no Secondary Osteoporosis: 1. Type 1 Diabetes: no 2. Hyperthyroidism: no 3. Menopause before 45: no 4. Malnutrition: no 5. Chronic liver disease: no Rheumatoid Arthritis: no Current Tobacco Use: no RISK FACTORS HISTORY OF: Hip Fracture (Right/Left): no Spine Fracture: no History of Wrist Fracture: no Surgery to Spine/Hip(right/left)/Wrist (right/left): no Family History of Osteoporosis: no Active: no Diet low in dairy products/other sources of calcium: no Postmenopausal woman: yes Take estrogen and/or progesterone medications: no Lost more than 2 inches in height since high school: no Frequent falls: no Poor Health: no Hyperparathyroidism: no Adrenal Insufficiency: no MEDICATIONS: Prednisone or other steroids: no Thyroid Medications: Levothyroxin How Long: past 20 plus years Osteoporosis Medications:no Additional Medications: Additional History: EXAM MEASUREMENTS: Bone mineral densitometry was performed using the [employer] System. Bone mineral density as measured about the Lumbar spine is: ----- L1-L4(G/cm2): 1.093 T Score Values are as follows: ----- L1: -0.9 ----- L2: -0.6 ----- L3: -0.8 ----- L4: -0.7 ----- L1-L4: -0.7 Z Score Values are as follows: ----- L1: -0.9 ----- L2: -0.6 ----- L3: -0.8 ----- L4: -0.7 ----- L1-L4: -0.7 Baseline study Bone mineral density about the R hip (g/cm2): 0.984 Bone mineral density about the L hip (g/cm2): 0.998 T Score values are as follows: -----R Neck: -0.8 -----L Neck: -0.9 -----R Total: -0.2 -----L Total: -0.1 Z Score values are as follows: -----R Neck: -0.3 -----L Neck: 0.4 -----R Total: -0.1 -----L Total: 0.0 Baseline study FRAX%s: The graph provided illustrates a 6.2% chance for a major osteoporotic fx and a 0.3% chance fo r the hips probability for fx in 10 years time. IMPRESSION: Normal (Values between +1 and -1 indicate normal bone mass). Consider repeating this study in 5 year s or sooner if there is some new clinical indication. NOTE: T-SCORE=SD OF THE YOUNG ADULT MEAN.
--- NOTE | 2023-02-11 08:18 | MM ---
Reason for Exam: Screening (asymptomatic). Last mammogram was performed 2 year(s) and 2 month(s) ago. Patient History: Menarche at age 17. First Full-Term at age 21. Postmenopausal. 04/10/2019, High risk Core Biopsy on the right side. 02/09/2019, Benign Core Biopsy on the right side. Risk Values: Rocio 5 year model risk: 1.4%. NCI Lifetime model risk: 7.2%. Prior Study Comparison: 12/20/2018 Bilateral Screening Mammogram, [facility]. 01/12/2019 Right Diagnostic Mammogram, [facility]. 12/12/2020 Bilateral Diagnostic Mammogram, [facility]. Tissue Density: The breast tissue is heterogeneously dense. This may lower the sensitivity of mammography. Findings: Analyzed By CAD. Surgical clips in the right breast upper outer quadrant are redemonstrated. There is no suspicious group of microcalcifications or new suspicious mass in either breast. Overall Assessment: Benign, BI-RAD 2 Management: Screening Mammogram of both breasts in 1 year. A clinical breast exam by your physician is recommended on an annual basis and results should be correlated with mammographic findings. Electronically signed and approved by: Edgar Dominguez M.D.
== END | disposition home or self-care (01) ==
LOC: RADMAMWWP 14:29
PROVIDERS: ATTEND Family Medicine
DX: Z12.31 Encounter for screening mammogram for malignant neoplasm of breast (principal); Z78.0 Asymptomatic menopausal state
CPT/HCPCS: 77067; 77080

== ENCOUNTER → 2023-04-21 | Outpatient (CLI) | payer BC ==
[2023-04-21 12:43] VITALS: BP 181/91; PULSE 68; RESP 18; TEMP 98.1
== END ==
LOC: PNWHC3 11:37
PROVIDERS: ATTEND Specialist
DX: M50.13 Cervical disc disorder with radiculopathy, cervicothoracic region (principal)
CPT/HCPCS: 99211

== ENCOUNTER 2023-04-27 01:32 | Emergency (ER) | payer BC ==
[2023-04-27] MEDS ORDERED: HYDROmorphone 1 MG/ML 1 ML SYRINGE ONE (04:59)
[2023-04-27] MEDS ORDERED: SODIUM CHLORIDE 0.9% 1,000 ML BAG ONE (04:59)
[2023-04-27] MEDS ORDERED: KETOROLAC 15 MG/ML 1 ML VIAL ONE (04:59)
[2023-04-27 06:34] LABS: ALT 20 U/L (4-34); AST 23 U/L (14-36); African American GFR (CKD) 67 (>60 ml/min/1.73 sqM); Albumin 4.2 g/dL (3.5-5.0); Alkaline Phosphatase 80 U/L (38-126); Amylase 52 U/L (30-110); Anion Gap 12 mmol/L; Blood Urea Nitrogen 17 mg/dL (7-17); Calcium 9.5 mg/dL (8.4-10.2); Carbon Dioxide 22 mmol/L (22-30); Chloride 102 mmol/L (98-107); Glucose 131 mg/dL (74-99); Lipase 78 U/L (23-300); Non-African American GFR(CKD) 58 (>60 ml/min/1.73 sqM); Potassium 4.2 mmol/L (3.5-5.1); Sodium 136 mmol/L (137-145); Total Bilirubin 1.4 mg/dL (0.2-1.3); Total Protein 7.1 g/dL (6.3-8.2)
[2023-04-27 06:50] LABS: Appearance,Urine Clear (Clear); Bacteria,Urine Rare /hpf; Bilirubin,Urine Negative (Negative); Blood,Urine Moderate (Negative); Color,Urine Light Yellow; Glucose,Urine (UA) Negative (Negative); Ketones,Urine Negative (Negative); Leukocyte Esterase,Urine Small (Negative); Mucus,Urine Few /hpf; Nitrite,Urine Negative (Negative); Protein,Urine Negative (Negative); RBC,Urine 22 /hpf (0-5); Specific Gravity,Urine 1.009 (1.001-1.035); Squamous Epithelial Cell,Urine 1 /hpf (0-4); Urobilinogen,Urine <2.0 mg/dL (<2.0); WBC,Urine 5 /hpf (0-5)
[2023-04-27 06:59] LABS: Basophils % (A) 0 %; Eosinophils # (A) 0.1 k/uL (0-0.7); Eosinophils % (A) 1 %; HCT 41.6 % (34.0-46.0); HGB 13.6 gm/dL (11.4-16.0); Lymphocytes # (A) 0.8 k/uL (1.0-4.8); Lymphocytes % (A) 5 %; MCH 29.4 pg (25.0-35.0); MCHC 32.7 g/dL (31.0-37.0); MCV 89.9 fL (80.0-100.0); Mean Platelet Volume 7.7; Monocytes # (A) 0.6 k/uL (0-1.0); Monocytes % (A) 4 %; Neutrophils # (A) 14.2 k/uL (1.3-7.7); Neutrophils % (A) 90 %; Platelet Count 228 k/uL (150-450); RBC 4.63 m/uL (3.80-5.40); RDW 12.9 % (11.5-15.5); WBC 15.9 k/uL (3.8-10.6)
--- NOTE | 2023-04-27 08:21 | CT ---
EXAMINATION TYPE: CT abdomen pelvis wo con DATE OF EXAM: 04/27/2023 COMPARISON: 04/21/2021 HISTORY: 62-year-old female left flank pain, possible kidney stone CT DLP: 1082.4 mGycm. Automated exposure control for dose reduction was used. TECHNIQUE: Contiguous axial scanning of the abdomen and pelvis without IV contrast. Coronal and sagit faisal reconstructions performed. FINDINGS: Parts upper limits of normal in size without pericardial effusion. Increased interstitial opacities w ithin the lower lungs. Possible interval post infectious scarring. Liver enlarged at 20.0 cm. There may be mild fatty infiltration. Cholecystectomy clips. Otherwise, noncontrast appearance of the adrenal glands, spleen, and pancreas show no gross abnormal. A couple punctate 2 mm nonobstructing right renal calculi. A number of additional nonobstructing left renal calculi, largest measuring 9 mm. There are bilateral parapelvic cysts measuring up to 4.5 cm o n the left. However, in addition, there is moderate left-sided hydronephrosis with left-sided perinephric edema. Asymmetric left-sided hydroureter, and 2 stones within the distal left ureter measuring 6 mm and 3 mm . Previous mesh repair at the umbilicus. No dilated small bowel, free fluid, or free air. No mesenteric or retroperitoneal lymphadenopathy. Normal appendix. Mild stool burden. Left side of the colon is largely collapsed. Bladder is nondistended. Uterus anteverted. Pelvic phleboliths on the right. No abnormal fluid collec tion the pelvis or pelvic lymphadenopathy. Curvilinear densities behind the right deep inguinal ring; query prior inguinal hernia repair. Bones: Bilateral L5 pars defects with trace grade 1 anterolisthesis L4-L5. Facet arthropathy mid to l ower lumbar spine. Anterior endplate spondylosis lower thoracic spine. IMPRESSION: 1. 2 stones within the distal left ureter measuring 6 mm and 3 mm. This contributes to moderate obst ructive uropathy. 2. Additional bilateral nonobstructive nephrolithiasis measuring up to 9 mm. A number of bilateral p arapelvic cysts measuring up to 4.5 cm. 3. Possible interval development of postinfectious scarring in the lower lungs, new from 04/21/2021. Clinical correlate. 4. Hepatomegaly at 20.0 cm. 5. Bilateral L5 pars defects with trace grade 1 anterolisthesis at L4-L5.
[2023-04-27] MEDS ORDERED: HYDROmorphone 1 MG/ML 1 ML SYRINGE IVP STA (08:52)
--- NOTE | 2023-04-27 08:53 | ED ---
Abdominal Pain HPI - General Stated Complaint: Kidney Stone - History of Present Illness Initial Comments: Please see downtime charting - Related Data Home Medications Medication Instructions Recorded Confirmed Levothyroxine Sodium [Synthroid] 200 mcg PO DAILY 02/05/19 04/21/23 Losartan/Hydrochlorothiazide 1 tab PO DAILY 02/09/19 04/21/23 [Losartan-Hctz 100-25 mg Tab] Ibuprofen 400 mg PO Q6H PRN 02/23/19 04/21/23 metroNIDAZOLE [Flagyl] 500 mg PO TID 05/03/19 04/21/23 Previous Rx's Medication Instructions Recorded Cephalexin [Keflex] 500 mg PO Q6HR #40 cap 04/28/19 HYDROcodone/APAP 10-325MG [Martin 1 tab PO Q4HR PRN #18 tab 04/27/23 10-325] Ketorolac [Toradol] 10 mg PO Q8HR #15 tab 04/27/23 Ondansetron Odt [Zofran Odt] 4 mg PO Q8HR PRN #15 tab 04/27/23 Allergies Allergy/AdvReac Type Severity Reaction Status Date / Time No Known Allergies Allergy Verified 04/21/23 12:32 Review of Systems ROS Statement: Those systems with pertinent positive or pertinent negative responses have been documented in the HPI. ROS Other: All systems not noted in ROS Statement are negative. Past Medical History Past Medical History: Hypertension, Thyroid Disorder Additional Past Medical History / Comment(s): HX KIDNEY STONES. RT BREAST MASS CURRENTLY. History of Any Multi-Drug Resistant Organisms: None Reported Past Surgical History: Section, Cholecystectomy, Hernia Repair Additional Past Surgical History / Comment(s): kidney stone lithotripsy 2018, Cervical neck fusion 2017. HERNIA, [facility] INGU[facility]AL AND UMB. Past Anesthesia/Blood Transfusion Reactions: No Reported Reaction Smoking Status: Never smoker - Past Family History Father Brother(s) Family Medical History: Cancer Mother Family Medical History: Cancer General Exam - General Exam Comments Initial Comments: see downtime charting Course Vital Signs 04/27/23 09:19 Temperature 98.6 F Pulse Rate 66 Respiratory 18 Rate Blood Pressure 123/57 O2 Sat by Pulse 99 Oximetry Medical Decision Making - Medical Decision Making Was pt. sent in by a medical professional or institution (, PA, HOME SERVICE TECHNICIAN, urgent care, hospital, or fci...) When possible be specific @ -No Did you speak to anyone other than the patient for history (EMS, parent, family, police, friend...)? What history was obtained from this source @ -No Did you review nursing and triage notes (agree or disagree)? Why? @ -I reviewed and agree with nursing and triage notes Were old charts reviewed (outside hosp., previous admission, EMS record, old EKG, old radiological studies, urgent care reports/EKG's, fci records)? Report findings @ -No Differential Diagnosis (chest pain, altered mental status, abdominal pain women, abdominal pain men, vaginal bleeding, weakness, fever, dyspnea, syncope, headache, dizziness, GI bleed, back pain, seizure, CVA, palpatations, mental health, musculoskeletal)? @ -kidney stone, hydronephrosis, uti, pyelonephritis EKG interpreted by me (3pts min.). @ -No X-rays interpreted by me (1pt min.). @ -None done CT interpreted by me (1pt min.). @ -yes - 2 ureteral stones U/S interpreted by me (1pt. min.). @ -None done What testing was considered but not performed or refused? (CT, X-rays, U/S, labs)? Why? @ -None What meds were considered but not given or refused? Why? @ -None Did you discuss the management of the patient with other professionals (professionals i.e. , PA, HOME SERVICE TECHNICIAN, lab, RT, psych nurse, child protective services social worker, roofing machine tender, teacher, natural resource officer, case managers)? Give summary @ -No Was smoking cessation discussed for >3mins.? @ -No Was critical care preformed (if so, how long)? @ -no Were there social determinants of health that impacted care today? How? (Homelessness, low income, unemployed, alcoholism, drug addiction, transportation, low edu. Level, literacy, decrease access to med. care, prison, rehab)? @ -No Was there de-escalation of care discussed even if they declined (Discuss DNR or withdrawal of care, Hospice)? DNR status @ -No What co-morbidities impacted this encounter? (DM, HTN, Smoking, COPD, CAD, Cancer, CVA, ARF, Chemo, Hep., AIDS, mental health diagnosis, sleep apnea, morbid obesity)? @ -kidney stones Was patient admitted / discharged? Hospital course, mention meds given and route, prescriptions, significant lab abnormalities, going to OR and other pertinent info. @ -Discharged with pain control Undiagnosed new problem with uncertain prognosis? @ -Yes Drug Therapy requiring intensive monitoring for toxicity (Heparin, Nitro, Insulin, Cardizem)? @ -No Were any procedures done? @ -No Diagnosis/symptom? @ -acute left flank pain, acute left hydronephrosis Acute, or Chronic, or Acute on Chronic? @ -acute Uncomplicated (without systemic symptoms) or Complicated (systemic symptoms)? @ -complicated Side effects of treatment? @ -no Exacerbation, Progression, or Severe Exacerbation? @ -No Poses a threat to life or bodily function? How? (Chest pain, [place], [place], pneumonia, PE, COPD, DKA, ARF, appy, cholecystitis, CVA, Diverticulitis, Homicidal, Suicidal, threat to staff... and all critical care pts) @ -no - Lab Data Result diagrams: 04/27/23 03:17 04/27/23 03:17 Lab Results 04/27/23 04/27/23 04/27/23 Range/Units 03:17 03:17 03:17 WBC 15.9 H (3.8-10.6) k/uL RBC 4.63 (3.80-5.40) m/uL Hgb 13.6 (11.4-16.0) gm/dL Hct 41.6 (34.0-46.0) % MCV 89.9 (80.0-100.0) fL MCH 29.4 (25.0-35.0) pg MCHC 32.7 (31.0-37.0) g/dL RDW 12.9 (11.5-15.5) % Plt Count 228 (150-450) k/uL MPV 7.7 Neutrophils % 90 % Lymphocytes % 5 % Monocytes % 4 % Eosinophils % 1 % Basophils % 0 % Neutrophils # 14.2 H (1.3-7.7) k/uL Lymphocytes # 0.8 L (1.0-4.8) k/uL Monocytes # 0.6 (0-1.0) k/uL Eosinophils # 0.1 (0-0.7) k/uL Basophils # 0.0 (0-0.2) k/uL Sodium 136 L (137-145) mmol/L Potassium 4.2 (3.5-5.1) mmol/L Chloride 102 (98-107) mmol/L Carbon Dioxide 22 (22-30) mmol/L Anion Gap 12 mmol/L BUN 17 (7-17) mg/dL Creatinine 1.05 H (0.52-1.04) mg/dL Est GFR (CKD-EPI)AfAm 67 (>60 ml/min/1.73 sqM) Est GFR (CKD-EPI)NonAf 58 (>60 ml/min/1.73 sqM) Glucose 131 H (74-99) mg/dL Calcium 9.5 (8.4-10.2) mg/dL Total Bilirubin 1.4 H (0.2-1.3) mg/dL AST 23 (14-36) U/L ALT 20 (4-34) U/L Alkaline Phosphatase 80 (38-126) U/L Total Protein 7.1 (6.3-8.2) g/dL Albumin 4.2 (3.5-5.0) g/dL Amylase 52 (30-110) U/L Lipase 78 (23-300) U/L Urine Color Light Yellow Urine Appearance Clear (Clear) Urine pH 6.0 (5.0-8.0) Ur Specific Burkett 1.009 (1.001-1.035) Urine Protein Negative (Negative) Urine Glucose (UA) Negative (Negative) Urine Ketones Negative (Negative) Urine Blood Moderate H (Negative) Urine Nitrite Negative (Negative) Urine Bilirubin Negative (Negative) Urine Urobilinogen <2.0 (<2.0) mg/dL Ur Leukocyte Esterase Small H (Negative) Urine RBC 22 H (0-5) /hpf Urine WBC 5 (0-5) /hpf Ur Squamous Epith Cells 1 (0-4) /hpf Urine Bacteria Rare H (None) /hpf Urine Mucus Few H (None) /hpf Disposition Clinical Impression: Left flank pain, Ureteral stone with hydronephrosis Disposition: HOME SELF-CARE Condition: Stable Instructions (If sedation given, give patient instructions): Kidney Stones (ED) Additional Instructions: Alternate taking the Toradol with the Martin every 4 hours. Take Flomax daily. Call and make an appointment with the urologist and return for any new or worsening symptoms. Prescriptions: HYDROcodone/APAP 10-325MG [Martin 10-325] 1 tab PO Q4HR PRN #18 tab PRN Reason: pain Ketorolac [Toradol] 10 mg PO Q8HR #15 tab Ondansetron Odt [Zofran Odt] 4 mg PO Q8HR PRN #15 tab PRN Reason: Nausea Is patient prescribed a controlled substance at d/c from ED?: Yes When asked, does pt state using other controlled substances?: No If prescribed controlled substance>3 days was MAPS reviewed?: Prescribed <3 Days If opioid is for acute pain is fill amount 7 days or less?: Yes If Rx opioid, was Start Talking consent form obtained?: No Referrals: Janeth Tracy DO [Primary Care Provider] - 1-2 days Kelvin De MD [STAFF PHYSICIAN] - 1-2 days Time of Disposition: 08:53
[2023-04-27 09:21] VITALS: BP 123/57; PULSE 66; RESP 18; TEMP 98.6
== END 2023-04-27 09:23 | disposition home or self-care (01) ==
LOC: EC 01:32
DX: N13.2 Hydronephrosis with renal and ureteral calculous obstruction (principal); I10 Essential (primary) hypertension; E07.9 Disorder of thyroid, unspecified; Z79.890 Hormone replacement therapy; Z90.49 Acquired absence of other specified parts of digestive tract
CPT/HCPCS: 36415; 93005; 80053; 82150; 83690; 85025; 81001; 74176; 99284; 96374; J1170; J1885

== ENCOUNTER 2023-05-27 05:54 | Day surgery (SDC) | payer BC ==
[2023-05-24 18:06] VITALS: BMI 40.7
[2023-05-27 06:20] VITALS: TEMP 97.6
[2023-05-27] MEDS ORDERED: IV FLUID CONTINUATION 1,000 ML IV ONE (06:21)
[2023-05-27] MEDS ORDERED: LIDOCAINE 1% (10MG/ML) FOR IV START INTRADERMA ONE (06:22)
[2023-05-27] MEDS ORDERED: LIDOCAINE 1% (10MG/ML) FOR IV START INTRADERMA PRN (06:26)
[2023-05-27] MEDS ORDERED: LACTATED RINGERS 1,000 ML IV SCH (06:26)
[2023-05-27] MEDS ORDERED: methylPREDNISolone ACETATE 40 MG/ML 1 ML VIAL ONE (07:05)
[2023-05-27] MEDS ORDERED: ROPIVACAINE 5 MG/ML 20 ML AMPULE ONE (07:05)
[2023-05-27] MEDS ORDERED: MIDAZOLAM 2 MG/2 ML VIAL ONE (07:06)
[2023-05-27] MEDS ORDERED: fentaNYL (PF) 50 MCG/ML 2 ML AMP ONE (07:06)
--- NOTE | 2023-05-27 07:28 | P.PCN ---
Date of Procedure: 05/27/23 Procedure(s) Performed: PREOPERATIVE DIAGNOSIS: 1-Cervical Spondylosis with Facet Arthropathy.without myelopathy. 2-cervical degenerative disc disease POSTOPERATIVE DIAGNOSIS:1-cervical spondylosis with facet arthropathy without myelopathy. 2-cervical degenerative disc disease PROCEDURES: Diagnostic bilateral C2 , C3, C4 , C5 , and C6 medial branch blocks, with fluoroscopic guidance (fluoroscopy images available in radiology department ) ( to target the facet joint at bilateral C2- 3 ,C3-4 )# 1st ANESTHESIA: Monitored anesthesia care as per anesthesia department . EBL: Minimal PROCEDURE INDICATION: The patient with neck pain secondary to cervical arthropathy unresponsive to more conservative treatments. PROCEDURE DESCRIPTION / TECHNIQUE: The patient was seen and identified in the preoperative area. Risks, benefits, complications, and alternatives were discussed with the patient, the patient agreed to proceed with the procedure and signed the consent. IV was started. Vital signs remained stable throughout the procedure. Patient was taken to the OR and time out was completed. The patient was placed in the prone position on the procedure table. A pillow was placed under the patients chest to increase the cervical interlaminar space. The cervical area was prepped and draped in the usual sterile fashion. Critical pause was taken. Vital signs were closely monitored during the procedure. Conscious sedation was used during the procedure to decrease patients anxiety. Using cross-table lateral fluoroscopy, the centroid of the trapezoid of right C2 ,C3, C4 was identified, marked, and localized with 1% lidocaine 1 ml at each level for skin and Sub Q infiltrations . Subsequently, a 22 G 3 spinal needle was advanced guided by fluoroscopy to the centroid of the trapezoid of Right C2 ,C3, C4 [place] tip position was confirmed at the centroid of the trapezoids of Right C2 ,C3 , C4 with anteroposterior fluoroscopy. Subsequently, 2 ml of preservative-free Ropivacaine 0.5% mixed with Depo- Medrol 20 mg and half ml of the mixture was injected after negative aspiration for blood and CSF. [place] was then removed intact the same procedure was repeated at the left C2 ,C3 , C4 levels. COMPLICATIONS: No acute complications. DISPOSITION / PLANS: The patient was placed in a supine position and transferred to the recovery area in a stable condition for observation and was discharged from the recovery room after meeting discharge criteria. Home discharge instructions given to the patient by the staff. The patient was reexamined prior to discharge. The patient will schedule a follow up in the clinic in 2-4 weeks.
[2023-05-27 07:32] VITALS: RESP 18
[2023-05-27 08:02] VITALS: BP 134/84; PULSE 66
--- NOTE | 2023-05-27 08:18 | FL ---
Fluoroscopy History: NECK PAIN 35 SEC FLUORO, .[id number] mGym2
== END 2023-05-27 08:10 | disposition home or self-care (01) ==
LOC: ORPAIN 05:54
PROVIDERS: ATTEND Specialist
DX: M50.31 Other cervical disc degeneration, high cervical region (principal); M47.812 Spondylosis without myelopathy or radiculopathy, cervical region; E03.9 Hypothyroidism, unspecified; Z79.890 Hormone replacement therapy; Z79.899 Other long term (current) drug therapy
CPT/HCPCS: 64491 ×2; 64490; J2250; J1030; J3010; J2795

== ENCOUNTER → 2023-06-22 | Outpatient (CLI) | payer BC ==
[2023-06-22 08:04] VITALS: BP 180/102; PULSE 72; RESP 16; TEMP 98.8
--- NOTE | 2023-06-22 14:39 | P.PAINPG ---
PQRS Measure Charge Sheet Comment: HISTORY OF PRESENT ILLNESS: 62 yr old female presents today w severe and chronic neck pain secondary to occipital neuralgia and cervicogenic VALLES for evaluation s/p BL MBB C2-C3, CX3-C4 #1. Pt states she experienced 0% pain relief s/p procedure. Pt states pain level is provoked at 6/10 in intensity, constant, localized in the upper cervical spine, achy in character w shooting pain towards the shoulders L >R. Pain is provoked by hyperextension, lifting. Pain is alleviated by PT w massage x 9 mo which ended in in Apr 2023, heat, medications, topical, THC products, repositioning and rest. Oswestry axial pain score of 26. Interventional procedures include BL MBB C2-C4 x1 Medications include Aleve, BioFreeze gel REVIEW OF ORGAN SYSTEMS: CONSTITUTIONAL: No fevers or chills. No recent weight loss. NEUROLOGICAL: + numbness and tingling along the distal extremities. No seizure disorders or headaches. MUSCULOSKELETAL: + pain PSYCHIATRIC: Denies current depression or suicidal thoughts. Physical Examinations : Constitutional : Cooperative , not in acute distress . Neurologic : Cranial nerve II to XII intact. No focal neurological deficits. Psychiatric : alert & oriented x 3. Matching mood & appropriate affect. Judgment & insight intact. Musculoskeletal : Cervical Spine BL LACHELLE TTP Motor strength in the deltoid and biceps: Normal right side. Normal Left side Motor strength biceps and the wrist extensors: Normal right side . Normal left side Motor strength in the triceps muscle: Normal right side. Normal left side Deep tendon reflexes: Normal at the biceps. Normal at Brachioradialis. Normal at triceps Vertebral body tenderness to deep palpation over Cervical facet loading test: positive bilaterally Spurling test: positive bilaterally Neck distraction test: positive bilaterally Ayana sign: positive bilaterally Lumbar spine Motor strength lower extremities ,thigh and legs 5/5 Right side , 5/5 Left side Deep tendon reflexes : Normal Knee Jerk. Normal Ankle Jerk Vertebral body tenderness over Burch Test positive Lumbar facet Loading Test: positive Right / positive Left Range of motion of the lumbar spine Flexion 30 degrees, extension 10 degrees Straight Leg Raise test: Left/ Right positive at degree Jordyn test: positive right / positive left. Severe tenderness over the Sacroiliac joint on the Right / Left sides Gaenslen test: positive bilaterally Seated flexion test: positive bilaterally. Sacral spine : Severe tenderness over the Sacroiliac joint: right side / left side Range of motion: Flexion of the lumbar spine <60 degrees Range of motion: Extension of the lumbar spine <20 degrees Gaenslen's Test positive Moe's Test positive Jordyn test: positive right side / left side Thigh Thrust Test Sacral Thrust Test Imaging: MRI noncontrast of the cervical spine from 10/12/22 reviewed Assessment/ Plan : Cervicogenic VALLES vs Occipital Neuralgia Recommendation of CONNIE LACHELLE. May need a series of injections for optimal pain relief. Risks, benefits of procedure discussed and patient verbalized understanding. Admits to aspirin or anti- coagulant use or medical history of diabetes. Protocol for discontinuation/ continuation of medications vazquez procedure discussed. Minimal anesthesia provided, if clinically indicated, consisting of Versed and Fentanyl. All questions answered. I have spent greater than 30 minutes on patient care today. Dr Christiansen was available by phone for the evaluation of this patient. The time was used to review the medical records including relevant urine studies and Prescription history (MAPs), review of the available imaging, evaluation and examination of the patient, coordination of care with the medical staff and if applicable referring physicians, as well as creation of the medical record PQRS Narrative: Smoking Status Never smoker Hx Alcohol Use (MH) Yes: WEEKENDS Home Medications: Ambulatory Orders Levothyroxine Sodium [Synthroid] 150 mcg PO DAILY 05/24/23 Controlled Substance Measures - Controlled Substance Measures Is patient prescribed a controlled substance at discharge?: No
== END ==
LOC: PNWHC3 07:10
PROVIDERS: ATTEND Specialist
DX: G89.29 Other chronic pain (principal)
CPT/HCPCS: 99211

== ENCOUNTER → 2023-08-15 | Outpatient (CLI) | payer BC ==
[2023-08-15 09:33] VITALS: BP 142/87; PULSE 61; RESP 16; TEMP 98.2
--- NOTE | 2023-08-15 14:36 | P.PAINPG ---
PQRS Measure Charge Sheet Comment: HISTORY OF PRESENT ILLNESS: 62 yr old female presents today w severe and chronic neck pain secondary to post laminectomy, occipital neuralgia and cervicogenic VALLES for evaluation s/p BL LACHELLE #1. Pt states she experienced 20% pain relief s/p procedure. Pt states pain level is provoked at 6/10 in intensity, constant, localized in the upper cervical spine, achy in character w shooting pain towards the shoulders L >R. Pain is provoked by hyperextension, lifting. Pain is alleviated by PT w massage x 9 mo which ended in in Apr 2023, heat, medications, topical, THC products, repositioning and rest. Oswestry axial pain score of 26. Interventional procedures include BL MBB C2-C4 x1, BL LACHELLE x1 Medications include Aleve, BioFreeze gel REVIEW OF ORGAN SYSTEMS: CONSTITUTIONAL: No fevers or chills. No recent weight loss. NEUROLOGICAL: + numbness and tingling along the distal extremities. No seizure disorders or headaches. MUSCULOSKELETAL: + pain PSYCHIATRIC: Denies current depression or suicidal thoughts. Physical Examinations : Constitutional : Cooperative , not in acute distress . Neurologic : Cranial nerve II to XII intact. No focal neurological deficits. Psychiatric : alert & oriented x 3. Matching mood & appropriate affect. Judgment & insight intact. Musculoskeletal : Cervical Spine BL LACHELLE TTP Motor strength in the deltoid and biceps: Normal right side. Normal Left side Motor strength biceps and the wrist extensors: Normal right side . Normal left side Motor strength in the triceps muscle: Normal right side. Normal left side Deep tendon reflexes: Normal at the biceps. Normal at Brachioradialis. Normal at triceps Vertebral body tenderness to deep palpation over Cervical facet loading test: positive bilaterally over BL C2-C3, C4-C4 Spurling test: positive bilaterally Neck distraction test: positive bilaterally Ayana sign: positive bilaterally Lumbar spine Motor strength lower extremities ,thigh and legs 5/5 Right side , 5/5 Left side Deep tendon reflexes : Normal Knee Jerk. Normal Ankle Jerk Vertebral body tenderness over Burch Test positive Lumbar facet Loading Test: positive Right / positive Left Range of motion of the lumbar spine Flexion 30 degrees, extension 10 degrees Straight Leg Raise test: Left/ Right positive at degree Jordyn test: positive right / positive left. Severe tenderness over the Sacroiliac joint on the Right / Left sides Gaenslen test: positive bilaterally Seated flexion test: positive bilaterally. Sacral spine : Severe tenderness over the Sacroiliac joint: right side / left side Range of motion: Flexion of the lumbar spine <60 degrees Range of motion: Extension of the lumbar spine <20 degrees Gaenslen's Test positive Moe's Test positive Jordyn test: positive right side / left side Thigh Thrust Test Sacral Thrust Test Imaging: MRI noncontrast of the cervical spine from 10/12/22 reviewed Assessment/ Plan : Post cervical laminectomy syndrome, Cervicogenic VALLES vs Occipital Neuralgia Recommendation of Behavioral health eval for SCS Trial Dx G89.4, M50.11. May need a series of injections for optimal pain relief. Risks, benefits of procedure discussed and patient verbalized understanding. Admits to aspirin or anti- coagulant use or medical history of diabetes. Protocol for discontin uation/ continuation of medications vazquez procedure discussed. Minimal anesthesia provided, if clinically indicated, consisting of Versed and Fentanyl. All questions answered. I have spent greater than 30 minutes on patient care today. Dr Christiansen was available by phone for the evaluation of this patient. The time was used to review the medical records including relevant urine studies and Prescription history (MAPs), review of the available imaging, evaluation and examination of the patient, coordination of care with the medical staff and if applicable referring physicians, as well as creation of the medical record PQRS Narrative: Smoking Status Never smoker Hx Alcohol Use (MH) Yes: WEEKENDS Home Medications: Ambulatory Orders Levothyroxine Sodium [Synthroid] 150 mcg PO DAILY 05/24/23 Naproxen Sodium [Aleve] 440 mg PO DIRECTED PRN 07/27/23 Controlled Substance Measures - Controlled Substance Measures Is patient prescribed a controlled substance at discharge?: No
== END ==
LOC: PNWHC3 07:53
PROVIDERS: ATTEND Specialist
DX: G89.4 Chronic pain syndrome (principal); M50.11 Cervical disc disorder with radiculopathy, high cervical region; M47.22 Other spondylosis with radiculopathy, cervical region; M96.1 Postlaminectomy syndrome, not elsewhere classified
CPT/HCPCS: 99211

== ENCOUNTER → 2025-02-19 | Outpatient (CLI) | payer BC ==
--- NOTE | 2025-02-19 13:56 | MM ---
Reason for Exam: Screening (asymptomatic). Last mammogram was performed 2 year(s) and 0 month(s) ago. Patient History: Menarche at age 17. First Full-Term at age 21. Postmenopausal. 04/10/2019, High risk Core Biopsy on the right side. 02/09/2019, Benign Core Biopsy on the right side. Risk Values: Rocio 5 year model risk: 1.5%. NCI Lifetime model risk: 6.8%. Prior Study Comparison: 01/12/2019 Right Diagnostic Mammogram, [facility]. 12/12/2020 Bilateral Diagnostic Mammogram, [facility]. 02/10/2023 Bilateral MG screening mammo w CAD, [facility]. Tissue Density: The breasts are heterogeneously dense, which may obscure small masses. Findings: Analyzed By CAD. Surgical clips in the right breast outer aspect are redemonstrated. Benign-appearing bilateral axillary lymph nodes are again seen. There is no suspicious new group of microcalcifications or new suspicious mass in either breast. Overall Assessment: Benign, BI-RAD 2 Management: Screening Mammogram of both breasts in 1 year. . Patient should continue monthly self-breast exams. A clinical breast exam by your physician is recommended on an annual basis. This exam should not preclude additional follow-up of suspicious palpable abnormalities. Note on Rocio scores and lifetime risk: 1. A Rocio score greater than 3% is considered moderate risk. If this is the case, consider specialist referral to assess eligibility for a risk reducing agent. 2. If overall lifetime risk for the development of breast cancer is 20% or higher, the patient may qualify for future screening with alternating mammogram and breast MRI. [facility], , 02/19/2025 1:52 PM. Electronically signed and approved by: Edgar Dominguez M.D.
== END | disposition home or self-care (01) ==
LOC: RADMAMWWP 12:38
PROVIDERS: ATTEND Family Medicine
DX: Z12.31 Encounter for screening mammogram for malignant neoplasm of breast (principal); R92.333 Mammographic heterogeneous density, bilateral breasts; Z78.0 Asymptomatic menopausal state
CPT/HCPCS: 77063; 77067